=== PATIENT | female | born 1975 | race African-American/Black ===

== ENCOUNTER 2017-12-11 07:32 | Emergency (ER) | payer OTHER ==
[~2017-12-11] VITALS: Ht 170.2 cm; Wt 93.4 kg
[2017-12-11] MEDS ORDERED: VALIUM5 MG PO (08:18)
[2017-12-11] MEDS ORDERED: NORCO 5/3251 TABLET PO (08:18)
[2017-12-11 09:35] VITALS: BP 128/85
== END 2017-12-11 09:36 | disposition home or self-care (01) ==
LOC: EME 07:32
DX: M54.6 Pain in thoracic spine (principal)
CPT/HCPCS: 99281; 99283; J1100